=== PATIENT | female | born 1980 | race Caucasian/White ===

== ENCOUNTER 2022-03-07 16:09 | Emergency (ER) | payer OTHER, MEDICAID ==
[~2022-03-07] VITALS: Ht 154.9 cm; Wt 81.6 kg
[~2022-03-07 16:09] MED LIST: CIPRO500 MG PO; DILTIAZEM60 M1 OR; HYDROCHLOROT25 MG OR; MEVACOR40 MG OR
[2022-03-07] MEDS ORDERED: CYCLOBENZAPRINE10 MG PO (16:32)
[2022-03-07] MEDS ORDERED: TRAMADOL HYDROC50 M1 PO (16:32)
[2022-03-07] MEDS ORDERED: MOTRIN800 MG PO (16:32)
[2022-03-07 19:21] VITALS: BP 98/40
== END 2022-03-07 19:21 | disposition home or self-care (01) | DRG 552 ==
LOC: ED 16:09
DX: S16.1XXA Strain of muscle, fascia and tendon at neck level, initial encounter (principal); V43.52XA Car driver injured in collision with other type car in traffic accident, initial encounter

== ENCOUNTER 2023-09-12 08:06 | Emergency (ER) | payer OTHER ==
[~2023-09-12] VITALS: Ht 154.9 cm; Wt 77.1 kg
[2023-09-12] VITALS (8 sets, daily range): BP systolic 101–132; BP diastolic 60–76
[~2023-09-12 08:06] MED LIST changes: +CYCLOBENZAPRINE10 MG PO; +MOTRIN800 MG PO; +TRAMADOL HYDROC50 M1 PO
[2023-09-12] MEDS ORDERED: IBUPROFEN 200 MG/TAB PO ONE (08:25)
[2023-09-12] MEDS ORDERED: MOTRIN400 MG/TAB PO (09:17)
== END 2023-09-12 09:42 | disposition home or self-care (01) | DRG 556 ==
LOC: ED 08:06
DX: M79.672 Pain in left foot (principal)